=== PATIENT | female | born 1990 | race African-American/Black ===

== ENCOUNTER 2017-09-26 16:39 | Inpatient (IN) ==
[2017-09-26 18:02] LABS: Basophils % 0.1 % (0.0-0.8); Eosinophils # 0.1 10*3/uL (0.0-0.87); Eosinophils % 0.8 % (0.00-10.9); Hematocrit 29.6 VOL% (35.7-47.0); Hemoglobin 10.2 GM/DL (12.0-16.0); Immature Granulocytes % 0.3 %; Immature Granulocytes Absolute 0.03 #; Lymphocytes # 2.4 10*3/uL (1.4-4.0); Lymphocytes % 23.6 % (21.3-54.2); Mean Corpuscular HGB Conc 34.5 GM/DL (32-36); Mean Corpuscular Hemoglobin 28 PG (27-34); Mean Corpuscular Volume 82.2 FL (87-102); Mean Platelet Volume 10.9 FL (9.6-12.0); Monocytes # 0.8 10*3/uL (0.11-0.8); Neutrophils # 6.7 10*3/uL (1.4-7.4); Neutrophils % 67.2 % (38.7-73.9); Platelet Count 274 T/CUMM (130-400); Red Cell Distribution Width 15.9 % (9.3-17.3)
[2017-09-26 18:06] LABS: Apearance,Urine Slightly Hazy (Clear); Bacteria,Urine Occasional /HPF (Few); Bilirubin,Urine Negative (Negative); Blood, Urine Negative (Negative); Glucose,Urine (UA) Negative (Negative); Hyaline Casts,Urine 3 /LPF (0-3); Ketones,Urine 20 mg/dL (Negative); Mucus,Urine Many /LPF (Occasional); Nitrite,Urine Negative (Negative); Protein,Urine 30 MG/DL; Squamous Epithelial Cell,Urine Occasional /HPF (0-10); Urine Color Amber (Yellow); WBC,Urine 4 /HPF (0-6)
[2017-09-26 18:11] LABS: INR 0.9; PT Patient Result 9.6 SECS
[2017-09-26 18:33] LABS: Alanine Aminotransferase 11 U/L (13-56); Albumin 2.7 G/DL (3.4-5.0); Alkaline Phosphatase 114 U/L (45-117); Aspartate Amino Transferase 16 U/L (0-37); Bilirubin,Total < 0.39 MG/DL (0.2-1.0); Blood Urea Nitrogen 4 MG/DL (7-18); Calcium 8.7 MG/DL (8.5-10.1); Glucose 71 MG/DL (74-106); Osmolality,Calculated 269.7 MOS/KG (273-304); Sodium 138 MMOL/L (136-145); Total Protein 7.4 G/DL (6.4-8.3); Uric Acid 4.7 MG/DL (2.6-6.0)
[2017-09-26] MEDS ORDERED: ONDANSETRON 4 MG/2 ML VIAL IV PRN (19:09)
[2017-09-26] MEDS ORDERED: DINOPROSTONE 10 MG VAG.INSERT VAG ONE (19:09)
[2017-09-26] MEDS: LABETALOL 200 MG TABLET PO SCH (19:15)
[2017-09-26] MEDS: LACTATED RINGERS 1,000 ML IV SCH (19:27)
[2017-09-26 20:01] LABS: Albumin 2.6 G/DL (3.4-5.0); Bilirubin,Total 0.4 MG/DL (0.2-1.0); Calcium 8.4 MG/DL (8.5-10.1); Osmolality,Calculated 270.7 MOS/KG (273-304); Potassium 3.4 MMOL/L (3.5-5.1); Total Protein 6.9 G/DL (6.4-8.3)
[2017-09-26] MEDS: METHYLDOPA 500 MG TABLET PO SCH (20:31)
[2017-09-26] MEDS: BUTORPHANOL 2 MG/ML VIAL IV PRN (21:53)
[2017-09-27] MEDS: BUTORPHANOL 2 MG/ML VIAL IV PRN ×2 (01:17→04:23)
[2017-09-27] MEDS ORDERED: AMPICILLIN 2,000 MG VIAL ONE (04:18)
[2017-09-27] MEDS ORDERED: SODIUM CHLORIDE 0.9% 100 ML IV ONE (04:18)
[2017-09-27] MEDS: LABETALOL 200 MG TABLET PO SCH ×3 (04:24→21:04)
[2017-09-27] MEDS ORDERED: AMPICILLIN INJ 2,000 MG in SODIUM CHLORIDE 0.9% 100 ML IV ONE (04:30)
[2017-09-27] MEDS: LACTATED RINGERS 1,000 ML IV SCH (05:48)
[2017-09-27] MEDS ORDERED: OXYTOCIN/LR 20 UNIT/1,000 ML BAG IV SCH (06:00)
[2017-09-27] MEDS ORDERED: ePHEDrine 50 MG/ML AMP IV PRN (06:34)
[2017-09-27] MEDS ORDERED: hydrOXYzine HCL 25 MG/1 ML VIAL IM PRN (06:34)
[2017-09-27] MEDS ORDERED: PROMETHAZINE 25 MG/1 ML VIAL IM ONE (06:34)
[2017-09-27] MEDS ORDERED: diphenhydrAMINE 50 MG/1 ML VIAL IV PRN ×2 (06:34)
[2017-09-27] MEDS ORDERED: CITRIC ACID/SODIUM CITRATE 30 ML UDCUP PO ONE (06:35)
[2017-09-27] MEDS ORDERED: FAMOTIDINE 20 MG/2 ML VIAL IV ONE (06:35)
[2017-09-27] MEDS ORDERED: fentaNYL 2 MCG/ROPIV 0.2% EPID 150 ML EPIDURAL SCH (07:00)
[2017-09-27] MEDS ORDERED: AMPICILLIN INJ 1,000 MG in SODIUM CHLORIDE 0.9% 100 ML IV SCH (08:30)
[2017-09-27 09:08] LABS: Cord Arterial Blood HCO3 23.4 MMOL/L
[2017-09-27 09:10] LABS: Cord Venous Blood HCO3 21.4 MMOL/L; Cord Venous Blood PCO2 44.3 MMHG; Cord Venous Blood PO2 31.2
[2017-09-27] MEDS: METHYLDOPA 500 MG TABLET PO SCH ×3 (09:20→23:46)
[2017-09-27] MEDS ORDERED: IBUPROFEN 800 MG TABLET ONE (12:52)
[2017-09-27] MEDS ORDERED: IBUPROFEN 800 MG TABLET PO PRN (12:53)
[2017-09-27] MEDS ORDERED: BISACODYL 10 MG SUPP RECTAL PRN (15:39)
[2017-09-27] MEDS ORDERED: ACETAMINOPHEN 325 MG TABLET PO PRN ×2 (15:39→15:43)
[2017-09-27] MEDS ORDERED: MAGNESIUM HYDROXIDE SUSP 30 ML UDCUP PO PRN (15:39)
[2017-09-27] MEDS ORDERED: ONDANSETRON 4 MG/2 ML VIAL IV PRN (15:43)
[2017-09-27] MEDS ORDERED: LACTATED RINGERS 1,000 ML IV SCH ×2 (16:00)
[2017-09-27] MEDS ORDERED: METHYLDOPA 500 MG TABLET PO SCH (21:00)
[2017-09-27] MEDS: DOCUSATE SODIUM 100 MG CAPSULE PO SCH (21:04)
[2017-09-28 06:05] LABS: Basophils % 0.2 % (0.0-0.8); Eosinophils # 0.2 10*3/uL (0.0-0.87); Eosinophils % 1.3 % (0.00-10.9); Hematocrit 26.3 VOL% (35.7-47.0); Hemoglobin 8.8 GM/DL (12.0-16.0); Immature Granulocytes % 0.4 %; Immature Granulocytes Absolute 0.05 #; Mean Corpuscular HGB Conc 33.5 GM/DL (32-36); Mean Corpuscular Hemoglobin 28 PG (27-34); Monocytes % 8.7 % (1.7-12.7); Neutrophils # 7.3 10*3/uL (1.4-7.4); Neutrophils % 63.4 % (38.7-73.9); Platelet Count 242 T/CUMM (130-400); Red Blood Count 3.17 MC/CUMM (3.8-5.5); Red Cell Distribution Width 15.9 % (9.3-17.3); White Blood Count 11.5 T/CUMM (4-12)
[2017-09-28] MEDS: METHYLDOPA 500 MG TABLET PO SCH (08:11)
[2017-09-28] MEDS: IBUPROFEN 800 MG TABLET PO PRN (08:11)
[2017-09-28] MEDS: DOCUSATE SODIUM 100 MG CAPSULE PO SCH (08:11)
[2017-09-28] MEDS: MULTIVITAMIN (PRENATAL) TABLET PO SCH (08:11)
[2017-09-28] MEDS: LABETALOL 200 MG TABLET PO SCH ×2 (08:11→22:22)
[2017-09-28 14:13] LABS: Basophils % 0.2 % (0.0-0.8); Eosinophils # 0.2 10*3/uL (0.0-0.87); Eosinophils % 1.5 % (0.00-10.9); Hematocrit 26.6 VOL% (35.7-47.0); Hemoglobin 8.8 GM/DL (12.0-16.0); Immature Granulocytes % 0.4 %; Immature Granulocytes Absolute 0.04 #; Lymphocytes # 2.7 10*3/uL (1.4-4.0); Lymphocytes % 26.8 % (21.3-54.2); Mean Corpuscular HGB Conc 33.1 GM/DL (32-36); Mean Corpuscular Hemoglobin 27 PG (27-34); Mean Corpuscular Volume 82.6 FL (87-102); Mean Platelet Volume 10.5 FL (9.6-12.0); Monocytes % 9.5 % (1.7-12.7); Neutrophils # 6.3 10*3/uL (1.4-7.4); Neutrophils % 61.6 % (38.7-73.9); Platelet Count 233 T/CUMM (130-400); Red Blood Count 3.22 MC/CUMM (3.8-5.5); Red Cell Distribution Width 15.9 % (9.3-17.3); White Blood Count 10.2 T/CUMM (4-12)
[2017-09-28 14:25] LABS: INR 0.9; PT Patient Result 9.8 SECS; Partial Thromboplastin Time 27.1 SECS (0-40)
[2017-09-28 14:43] LABS: Alanine Aminotransferase 11 U/L (13-56); Albumin 2.2 G/DL (3.4-5.0); Alkaline Phosphatase 84 U/L (45-117); Aspartate Amino Transferase 16 U/L (0-37); Bilirubin,Direct < 0.100 MG/DL (0.0-0.20); Bilirubin,Total < 0.39 MG/DL (0.2-1.0); Blood Urea Nitrogen 5 MG/DL (7-18); Calcium 8.4 MG/DL (8.5-10.1); Glucose 102 MG/DL (74-106); Osmolality,Calculated 275.4 MOS/KG (273-304); Potassium 3.3 MMOL/L (3.5-5.1); Sodium 140 MMOL/L (136-145); Total Protein 6.1 G/DL (6.4-8.3); Uric Acid 4.8 MG/DL (2.6-6.0)
[2017-09-28] MEDS ORDERED: MAGNESIUM SULF RIDER 4 GM in PREMIX 1 EACH IV ONE (14:59)
[2017-09-28] MEDS ORDERED: LACTATED RINGERS 1,000 ML IV SCH (15:00)
[2017-09-28] MEDS ORDERED: MAGNESIUM SULF RIDER 100 ML IV ONE (15:11)
[2017-09-28] MEDS: MAGNESIUM SULF DRIP 40 GM/1,000 ML ML IV SCH (15:40)
[2017-09-28 16:50] LABS: Apearance,Urine CLEAR (Clear); Bilirubin,Urine Negative (Negative); Blood, Urine Small mg/dL (Negative); Glucose,Urine (UA) Negative (Negative); Ketones,Urine Negative (Negative); Nitrite,Urine Negative (Negative); Protein,Urine Negative; Squamous Epithelial Cell,Urine Occasional /HPF (0-10); Urine Color Straw (Yellow); Urine Specific Gravity 1.002 (1.001-1.035); Urine Urobilinogen < 2.0 EU/DL (0.2-1.0); WBC,Urine <1 /HPF (0-6)
[2017-09-29] MEDS: IBUPROFEN 800 MG TABLET PO PRN (04:47)
[2017-09-29] MEDS: MULTIVITAMIN (PRENATAL) TABLET PO SCH (09:33)
[2017-09-29] MEDS: LABETALOL 200 MG TABLET PO SCH ×2 (09:34→21:32)
[2017-09-29] MEDS: DOCUSATE SODIUM 100 MG CAPSULE PO SCH ×2 (09:34→22:27)
[2017-09-29] MEDS: MAGNESIUM SULF DRIP 40 GM/1,000 ML ML IV SCH (12:12)
[2017-09-30] MEDS: LABETALOL 200 MG TABLET PO SCH (09:31)
[2017-09-30] MEDS: MULTIVITAMIN (PRENATAL) TABLET PO SCH (09:34)
[2017-09-30 11:30] VITALS: BP 149/90
[2017-09-30] MEDS ORDERED: DIPH/TET/ACEL PERT BOOSTER VACCINE 0.5 ML VIAL IM ONE (12:13)
[2017-10-02] MEDS: MAGNESIUM SULF DRIP 40 GM/1,000 ML ML IV SCH (07:18)
== END 2017-09-30 12:50 | disposition home or self-care (01) | DRG 560 ==
LOC: N.LDOUT 16:39 → N.LD 16:41 → N.OB 09-27 10:31
PROVIDERS: ADMIT Obstetrics & Gynecology; ATTEND Obstetrics & Gynecology